=== PATIENT | male | born 2000 | race Caucasian/White ===

== ENCOUNTER 2023-02-08 02:59 | Emergency (ER) | payer OTHER, SELFPAY ==
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
[2023-02-08 03:14] VITALS: BP 136/82; PULSE 100; RESP 20; TEMP 37; O2SAT 96
[2023-02-08] MEDS: ACETAMINOPHEN 500 MG TABLET 1000 MG PO (04:22)
== END 2023-02-08 04:48 | disposition home or self-care (01) ==
PROVIDERS: Emergency Provider Emergency Medicine
DX: S09.90XA Unspecified injury of head, initial encounter (principal); S60.222A Contusion of left hand, initial encounter; Y04.2XXA Assault by strike against or bumped into by another person, initial encounter; Y92.410 Unspecified street and highway as the place of occurrence of the external cause
CPT/HCPCS: 70450; 72125; 73130; 99284

== ENCOUNTER 2023-07-09 19:03 | Emergency (ER) | payer OTHER, SELFPAY ==
[2023-07-09 19:07] VITALS: BP 109/68; PULSE 85; RESP 18; TEMP 37.2; O2SAT 97
--- NOTE | 2023-07-09 19:15 | ED.GENADULT ---
HPI - General Adult General Chief complaint: Unspecified Stated complaint: hernia Time Seen by Provider: 07/09/23 19:15 Source: patient Mode of arrival: ambulatory Limitations: no limitations History of Present Illness HPI narrative: 23-year-old male with no significant past medical history presents to the ER with pain and swelling around the umbilicus. No discharge. This has been going on for the past 7 days. Onset (ago): day(s) ( Seven days) Location: abdomen ( umbilicus) Relieving factors: none Exacerbating factors: none Associated symptoms: denies other symptoms Treatments prior to arrival: none Related Data Allergies Allergy/AdvReac Type Severity Reaction Status Date / Time No Known Allergies Allergy Verified 02/08/23 03:47 Review of Systems Review of Systems: All systems reviewed & are unremarkable except as noted in HPI and below Constitutional: Constitutional: Reports as per HPI and Reports no additional constitutional complaints Eyes: Eyes: Reports as per HPI ENT: Reports system reviewed and no additional complaints, except as documented and Reports as per HPI Cardiovascular: Cardiovascular: Reports as per HPI and Reports no additional cardiovascular complaints Respiratory: Respiratory: Reports as per HPI and Reports no additional respiratory complaints Gastrointestinal: Gastrointestinal: Reports as per HPI, Reports no additional gastrointestinal complaints and Reports other ( pain and swelling around the umbilicus) Genitourinary: Genitourinary: Reports no additional male genitourinary complaints Musculoskeletal: Musculoskeletal: Reports no additional musculoskeletal complaints and Reports as per HPI Integumentary/Breasts: Skin/Breast: Reports system reviewed and no additional complaints, except as docu and Reports as per HPI Neurologic: Reports system reviewed and no additional complaints, except as documented and Reports as per HPI Psychiatric: Psychiatric: Reports no additional psychiatric complaints and Reports as per HPI Endocrine: Endocrine: Reports no additional endocrine complaints and Reports as per HPI Hematologic/Lymphatic: Hematologic/Lymphatic: Reports no additional hematologic/lymphatic complaints and Reports as per HPI Allergic/Immunologic: Allergic/Immunologic: Reports no additional allergic/immunologic complaints and Reports as per HPI Exam Const: General: cooperative and comfortable HENMT: Head: normal to inspection, normocephalic and atraumatic Ears: hearing grossly normal bilaterally and external ears normal Face/Nose/Sinus: Normal external nose present and Normal nares present Face and sinus: normal facial exam and sinuses nontender Mouth: Yes Normal oral and palatal mucosa present, Yes lip normal and Yes tongue normal Throat: posterior oropharynx normal Eyes: General: appearance normal, both eyes and all related structures Pupils: Equal, round and reactive pupils present Neck: Neck: normal visual inspection, full ROM, no lymphadenopathy and no meningeal signs Chest: Chest palpation & inspection: normal inspection of the chest Resp: Effort & Inspection: normal respiratory effort Auscultation: clear to auscultation bilaterally Cardio: Jugular venous distension: no JVD Palpation: normal PMI Rate: regular rate Rhythm: regular rhythm Heart sounds: S1 normal heart sound present and S2 normal heart sound present GI: Inspection: normal to inspection Abdomen image: 1. periumbilical the swelling/ erythema /tenderness : General: Yes no CVA tenderness Back/Spine/Pelvis: Back: no CVA tenderness Skin: General skin exam: normal color and no rashes or lesions noted Neuro: General: oriented to person, oriented to place, oriented to time and patient oriented x3 Extrem: General: normal to inspection, full ROM, capillary refill normal, normal exam except as noted, no joint enlargement and no clubbing, cyanosis or edema Psych: Appearance: grossly normal and well sanchez
[2023-07-09] MEDS: AMOXICILLIN/CLAVULANATE K 875-125 MG TAB 1 TABLET PO (19:42)
[2023-07-09 19:54] VITALS: BP 110/71; PULSE 78; RESP 18; O2SAT 99
== END 2023-07-09 19:55 | disposition home or self-care (01) ==
LOC: CHSED 19:39
PROVIDERS: Emergency Provider Internal Medicine Critical Care Medicine
DX: P38.9 Omphalitis without hemorrhage (principal)
CPT/HCPCS: 99283; A9270

== ENCOUNTER 2023-08-28 13:32 | Emergency (ER) | payer OTHER, SELFPAY ==
[2023-08-28 13:33] VITALS: BP 127/77; PULSE 102; RESP 20; TEMP 38.4; O2SAT 96
[2023-08-28 13:36] VITALS: O2SAT 96
[2023-08-28] MEDS: ACETAMINOPHEN 500 MG TABLET 1000 MG PO (13:58)
[2023-08-28 14:16] LABS: Strep Group A RT-PCR NOT DETECTED (Negative)
[2023-08-28 14:18] LABS: SARS-CoV-2 RNA PCR Negative (Negative)
[2023-08-28 14:19] LABS: Influenza A QL RT-PCR Positive (Negative); Influenza B QL RT-PCR Negative (Negative); RSV RNA, RT-PCR Negative (Negative)
--- NOTE | 2023-08-28 14:24 | ED.URI ---
HPI - URI/Sore Throat General Chief Complaint: Upper Respiratory Infection Stated Complaint: fever Source: patient Mode of arrival: ambulatory Limitations: no limitations History of Present Illness HPI Narrative: this is a 23-year-old male that presents with a 1 day history of cough congestion with nasal congestion fever with no shortness of breath cough is nonproductive with no nausea vomiting no abdominal pain. MD elicited complaint: fever, cough, sore throat and nasal congestion Onset (ago): day(s) Related Data Allergies Allergy/AdvReac Type Severity Reaction Status Date / Time No Known Allergies Allergy Verified 08/28/23 13:37 Review of Systems Review of Systems: All systems reviewed & are unremarkable except as noted in HPI and below PMFSH Past Medical History Medical History Patient denies medical problems Exam Const: General: healthy appearing and no acute distress Nutritional Appearance: well nourished Orientation/consciousness: patient oriented x3 Limitations: no limitations HENMT: Head: normal to inspection Other: nasal congestion sore throat and throat is erythematous Eyes: Conjunctivae: conjunctivae normal Neck: Neck: normal visual inspection and no lymphadenopathy Chest: Chest palpation & inspection: normal inspection of the chest Resp: Effort & Inspection: normal respiratory effort Auscultation: clear to auscultation bilaterally Cardio: Rate: regular rate Rhythm: regular rhythm GI: GI Palp: Yes Soft to palpation Auscultation: normal bowel sounds Skin: General skin exam: normal color Rashes: no rashes Course Course Emergency Course: patient received a dose of Tylenol for his fever, and a dose of Tamiflu as he was diagnosed with influenza, COVID RSV and strep were negative. Vital Signs Vital signs: Vital Signs Temperature 38.4 C H 08/28/23 13:33 Pulse Rate 102 H 08/28/23 13:33 Respiratory Rate 20 08/28/23 13:33 Blood Pressure 127/77 08/28/23 13:33 Pulse Oximetry 96 08/28/23 13:33 Oxygen Delivery Room Air 08/28/23 13:33 Temperature 38.4 C H 08/28/23 13:33 Pulse Rate 102 H 08/28/23 13:33 Respiratory Rate 20 08/28/23 13:33 Blood Pressure 127/77 08/28/23 13:33 Pulse Oximetry 96 08/28/23 13:36 Oxygen Delivery Room Air 08/28/23 13:36 MDM - URI/Sore Throat Lab Data Labs: Lab Results 08/28/23 Range/Units 13:44 Influenza A (RT-PCR) Positive A (Negative) Influenza B (RT-PCR) Negative (Negative) RSV (RT-PCR) Negative (Negative) SARS-CoV-2 RNA (RT-PCR) Negative (Negative) Group A Strep (PCR) Not detected (Negative) Critical Care Time Critical Care Time Critical Care Time: No Discharge Plan Discharge Clinical Impression: Influenza Patient Disposition: Home, Self-Care Condition: Stable Instructions: Antibiotic Form, Influenza (ED) Additional Instructions: Advised patient to take medicine as prescribed, can take Tylenol or Motrin for fever get rest drink plenty of water and follow up with primary symptoms persist or worsen. Prescriptions: New oseltamivir [Tamiflu] 75 mg capsule 75 mg PO Q12H 5 Days Qty: 10 0RF Follow-up/Referrals: UNKNOWN,DOCTOR [Primary Care Provider] - Stand Alone Forms: Work/School Release IP Time of Disposition: 14:29
[2023-08-28] MEDS: OSELTAMIVIR PHOSPHATE 75 MG CAPSULE PO (14:36)
[2023-08-28 14:44] VITALS: BP 121/81; PULSE 110; RESP 20; TEMP 37.2; O2SAT 96
== END 2023-08-28 14:44 | disposition home or self-care (01) ==
PROVIDERS: Emergency Provider Emergency Medicine
DX: J11.1 Influenza due to unidentified influenza virus with other respiratory manifestations (principal); Z20.822 Contact with and (suspected) exposure to COVID-19
CPT/HCPCS: 87637; 87651; 99283; A9270

== ENCOUNTER 2023-09-23 20:58 | Emergency (ER) | payer OTHER, SELFPAY ==
[2023-09-23 21:00] VITALS: BP 118/78; PULSE 58; RESP 16; TEMP 37.3; O2SAT 99
--- NOTE | 2023-09-23 21:11 | ED.GENADULT ---
HPI - General Adult General Chief complaint: Dental/Oral Stated complaint: Dental Pain Time Seen by Provider: 09/23/23 20:59 History of Present Illness HPI narrative: 23-year-old male presenting with dental pain X1 day. He has treated himself Tylenol and Orajel without relief. No swelling. Patient has not seen a dentist for 6 months. Related Data Allergies Allergy/AdvReac Type Severity Reaction Status Date / Time No Known Allergies Allergy Verified 09/23/23 20:59 [facility] Past Medical History Medical History Patient denies medical problems Exam Narrative: APPEARANCE: No apparent distress. Head: No obvious tooth decay, no signs of infection or abscess EYES: EOMI, NOSE: Atraumatic NECK: Trachea midline RESPIRATORY: No increased rate of breathing CARDIOVASCULAR: RRR, ABDOMINAL: Non-distended MUSCULOSKELETAl: No obvious deformities NEURO: Alert. Moving 4/4 extremities SKIN:: Warm, dry. Normal color PSYCHIATRIC: Normal affect Medical Decision Making MDM Narrative Medical decision making narrative: -Course: 23-year-old presenting with dental pain. No signs of infection or abscess on exam. Patient declined dental block. Treated with p.o. medication and discharged and follow-up. -Interventions: [place] 5 mg x 2, Motrin 800 mg -Shared decision making / Disposition: discharged -RX Motrin, Tylenol Discharge Plan Discharge Clinical Impression: Toothache Patient Disposition: Home, Self-Care Condition: Stable Instructions: Antibiotic Form, Toothache (ED) Additional Instructions: take Motrin Tylenol for pain. Follow-up with a dentist as soon as possible Prescriptions: New ibuprofen 800 mg tablet 800 mg PO TID PRN (Reason: pain) 7 Days Qty: 21 0RF acetaminophen 500 mg tablet 1,000 mg PO TID PRN (Reason: pool) 7 Days Qty: 42 0RF Follow-up/Referrals: UNKNOWN,DOCTOR [Primary Care Provider] - Stand Alone Forms: Work/School Release IP
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
--- NOTE | 2023-09-23 22:03 | PC.NURSE ---
PT unable to find ride home. Dental block offered by [facility] and pt declines.
[2023-09-23] MEDS: IBUPROFEN 400 MG TABLET 800 MG PO (22:11)
[2023-09-23 22:15] VITALS: BP 113/74; PULSE 48; RESP 16; O2SAT 98
== END 2023-09-23 22:17 | disposition home or self-care (01) ==
LOC: CHSED 21:34
PROVIDERS: Emergency Provider Emergency Medicine
DX: K08.89 Other specified disorders of teeth and supporting structures (principal)
CPT/HCPCS: 99283; A9270

== ENCOUNTER 2023-09-25 10:57 | Emergency (ER) | payer OTHER, SELFPAY ==
[2023-09-25 10:59] VITALS: BP 116/74; PULSE 97; RESP 17; TEMP 36.8; O2SAT 100
--- NOTE | 2023-09-25 11:26 | ED.DENTAL ---
HPI - Dental/Oral General Chief complaint: Dental/Oral Stated complaint: dental pain. Source: patient Mode of arrival: ambulatory Limitations: no limitations History of Present Illness HPI Narrative: this is a 23-year-old male who presents with some left upper molar tooth decay with surrounding gum inflammation and pain with a tender left submandibular gland no fever chills no shortness of breath. MD Complaint: tooth pain Teeth map: 1. Dental decay with surrounding gum inflammation Onset (ago): week(s) Duration: constant Severity: mild Related Data Allergies Allergy/AdvReac Type Severity Reaction Status Date / Time No Known Allergies Allergy Verified 09/25/23 11:06 Review of Systems Review of Systems: All systems reviewed & are unremarkable except as noted in HPI and below PMFSH Past Medical History Medical History Patient denies medical problems Exam Const: General: healthy appearing and no acute distress Nutritional Appearance: well nourished Orientation/consciousness: patient oriented x3 HENMT: Head: normal to inspection Other: Tender left submandibular gland with some left upper molar tenderness with palpation Eyes: Conjunctivae: conjunctivae normal Neck: Neck: normal visual inspection and lymphadenopathy Chest: Chest palpation & inspection: normal inspection of the chest Resp: Effort & Inspection: normal respiratory effort Auscultation: clear to auscultation bilaterally Cardio: Rate: regular rate Rhythm: regular rhythm GI: GI Palp: Yes Soft to palpation Course Course Emergency Course: send antibiotics and pain medication to patient's pharmacy and advised to keep follow-up appointment with dentist. Vital Signs Vital signs: Vital Signs Temperature 36.8 C 09/25/23 10:59 Pulse Rate 97 09/25/23 10:59 Respiratory Rate 17 09/25/23 10:59 Blood Pressure 116/74 09/25/23 10:59 Pulse Oximetry 100 09/25/23 10:59 Oxygen Delivery Room Air 09/25/23 10:59 Temperature 36.8 C 09/25/23 10:59 Pulse Rate 97 09/25/23 10:59 Respiratory Rate 17 09/25/23 10:59 Blood Pressure 116/74 09/25/23 10:59 Pulse Oximetry 100 09/25/23 10:59 Oxygen Delivery Room Air 09/25/23 10:59 Critical Care Time Critical Care Time Critical Care Time: No Discharge Plan Discharge Clinical Impression: Dental caries, Toothache, Dental abscess Patient Disposition: Home, Self-Care Condition: Stable Instructions: Antibiotic Form, Dental Abscess (ED), Toothache (ED) Additional Instructions: Take medicine as prescribed and follow-up dentist as scheduled Prescriptions: New amoxicillin 500 mg tablet 500 mg PO TID Qty: 30 0RF naproxen 500 mg tablet 500 mg PO BID PRN (Reason: pain) Qty: 20 0RF No Action ibuprofen 800 mg tablet 800 mg PO TID PRN (Reason: pain) 7 Days Qty: 21 0RF acetaminophen 500 mg tablet 1,000 mg PO TID PRN (Reason: pool) 7 Days Qty: 42 0RF Follow-up/Referrals: UNKNOWN,DOCTOR [Primary Care Provider] - Stand Alone Forms: Work/School Release IP Time of Disposition: 11:29
--- NOTE | 2023-09-25 11:45 | PC.NURSE ---
On 09/25/23, the student, Erica Duran, provided care and completed [facility] documentation on this patient. I have reviewed the student's documentation and agree with the findings.
[2023-09-25 11:50] VITALS: BP 116/74; PULSE 97; RESP 17; TEMP 36.8; O2SAT 100
== END 2023-09-25 11:50 | disposition home or self-care (01) ==
PROVIDERS: Emergency Provider Emergency Medicine
DX: K02.9 Dental caries, unspecified (principal); K08.89 Other specified disorders of teeth and supporting structures; K04.7 Periapical abscess without sinus
CPT/HCPCS: 99283

== ENCOUNTER 2025-04-15 14:53 | Emergency (ER) | payer MEDICAID, SELFPAY ==
[2025-04-15 14:53] VITALS: BP 136/82; PULSE 105; RESP 20; TEMP 36.9; O2SAT 100
--- NOTE | 2025-04-15 15:37 | PC.NURSE ---
pt states to registration staff if he doesnt give me any pain medications im going to buy fentanyl off the street.
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
== END 2025-04-15 15:38 | disposition home or self-care (01) ==
PROVIDERS: Emergency Provider Family Medicine; PCP Internal Medicine
DX: Z76.0 Encounter for issue of repeat prescription (principal); G89.18 Other acute postprocedural pain
CPT/HCPCS: 99281